=== PATIENT | male | born 1970 ===

== ENCOUNTER 2022-01-05 13:06 | Emergency (ER) | payer OTHER, SELFPAY ==
[2022-01-05 13:12] VITALS: BP 136/83; PULSE 100; RESP 19; TEMP 37.1; O2SAT 98
--- NOTE | 2022-01-05 15:17 | PC.NURSE ---
1423: Pt called to go back to room, no answer 1517: pt called again to go back to room, no answer
== END 2022-01-06 03:42 | disposition left against medical advice (07) ==
DX: R11.2 Nausea with vomiting, unspecified (principal)
CPT/HCPCS: 99199